=== PATIENT | female | born 1955 | race Native Hawaiian/Other Pacific Islander ===

== ENCOUNTER 2018-07-14 10:41 | Emergency (ER) | payer OTHER, SELFPAY ==
[2018-07-14 11:09] VITALS: BP 141/52
--- NOTE | 2018-07-14 11:10 | Emergency Department Report ---
Chief Complaint: Recheck/Abnormal Lab/Rx Stated Complaint: SENT BY /HYPERKALEMIA Time Seen by Provider: 07/14/18 11:08 - HPI History of Present Illness: Pt presents for hyperkalemia sent by her PCP she has paperwork which shows a K o 6.3 she states she was placed on medication but not sure what it is today had a recheck of K which was 6.4 sent to ED for further evaluation MSE screening note: Focused history and physical exam performed. Due to findings the following was ordered: labs, EKG ED Disposition for MSE Condition: Stable
[2018-07-14] MEDS ORDERED: KIONEX PO ONE ×2 (12:32→12:33)
--- NOTE | 2018-07-14 12:38 | Emergency Department Report ---
ED General Adult HPI - General Chief complaint: Recheck/Abnormal Lab/Rx Stated complaint: SENT BY DR/HYPERKALEMIA Time Seen by Provider: 07/14/18 11:08 Source: patient Mode of arrival: Ambulatory Limitations: No Limitations - History of Present Illness Initial comments: Patient is a 62-year-old female who is presenting with asymptomatic hyperkalemia. The patient's physician placed her on Kayexalate secondary to this hyperkalemia at the level 6.3. Patient states she took 3 days' worth of Kayexalate and her potassium was still high so her physician sent her to the emergency department. Patient has no nausea vomiting diarrhea fevers chills cough cold or congestion at this time. Severity scale (0 -10): 0 - Related Data Home Medications Medication Instructions Recorded Confirmed Last Taken Dramamine (Nf) 50 mg PO Q6H PRN 02/26/15 02/26/15 02/26/15 0800 Ibuprofen [Advil 100 MG tab] 200 mg PO Q6H PRN 02/26/15 02/26/15 02/26/15 Lisinopril [Zestril TAB] 10 mg PO QDAY 02/26/15 02/26/15 02/26/15 metFORMIN [Glucophage] 1,000 mg PO BID 02/26/15 02/26/15 02/26/15 Allergies Allergy/AdvReac Type Severity Reaction Status Date / Time codeine Allergy Intermediate Vomiting Verified 02/26/15 22:06 ED Review of Systems ROS: Stated complaint: SENT BY DR/HYPERKALEMIA Other details as noted in HPI Comment: All other systems reviewed and negative ED Past Medical Hx - Past Medical History Hx Hypertension: Yes Hx Diabetes: Yes - Social History Smoking Status: Never Smoker Substance Use Type: None - Medications Home Medications: Home Medications Medication Instructions Recorded Confirmed Last Taken Type Dramamine (Nf) 50 mg PO Q6H PRN 02/26/15 02/26/15 02/26/15 History 0800 Ibuprofen [Advil 100 MG tab] 200 mg PO Q6H PRN 02/26/15 02/26/15 02/26/15 Histo ry Lisinopril [Zestril TAB] 10 mg PO QDAY 02/26/15 02/26/15 02/26/15 History metFORMIN [Glucophage] 1,000 mg PO BID 02/26/15 02/26/15 02/26/15 History ED Physical Exam - General Limitations: No Limitations General appearance: alert, in no apparent distress - Head Head exam: Present: atraumatic, normocephalic - Eye Eye exam: Present: normal appearance - ENT ENT exam: Present: mucous membranes moist - Neck Neck exam: Present: normal inspection - Respiratory Respiratory exam: Present: normal lung sounds bilaterally. Absent: respiratory distress, wheezes, rales, rhonchi, stridor - Cardiovascular Cardiovascular Exam: Present: regular rate, normal rhythm. Absent: systolic murmur, diastolic murmur, rubs, gallop - GI/Abdominal GI/Abdominal exam: Present: soft, normal bowel sounds. Absent: distended, tenderness, guarding, rebound - Extremities Exam Extremities exam: Present: normal inspection - Back Exam Back exam: Present: normal inspection - Neurological Exam Neurological exam: Present: alert, oriented X3 - Psychiatric Psychiatric exam: Present: normal affect, normal mood - Skin Skin exam: Present: warm, dry, intact, normal color. Absent: rash ED Course Vital Signs 07/14/18 11:06 Temperature 97.8 F Pulse Rate 97 H Respiratory 18 Rate Blood Pressure 141/52 O2 Sat by Pulse 98 Oximetry ED Medical Decision Making - Lab Data Result diagrams: 07/14/18 11:52 - EKG Data -: EKG Interpreted by Me EKG shows normal: sinus rhythm, axis, intervals, QRS complexes, ST-T waves Rate: normal - EKG Data Interpretation: normal EKG - Medical Decision Making Patient's potassium 6.2 here in emergency department. I asked the patient specifically how much of her Kayexalate she was taking it she stated a teaspoon. Patient was supposed to take 15 g which is the equivalent of 60 mL's. Patient is only been taking 5 ML's once a day which equates to 3 g of Kayexalate. At this rate the patient has been inadequately dosed. Patient was given education on how much 60ml is. She was given a syringe to be able to give her medications at the proper dose. Patient given her first dose of 60 mL's of Kayexalate here in emergency department the patient be discharged home with follow-up with her primary care physician for retesting. Patient has no symptoms at this time and no EKG changes he can be safely discharged. Critical care attestation.: If time is entered above; I have spent that time in minutes in the direct care of this critically ill patient, excluding procedure time. ED Disposition Clinical Impression: Hyperkalemia Disposition: DC-01 TO HOME OR SELFCARE Is pt being admited?: No Does the pt Need Aspirin: No Condition: Stable Additional Instructions: Please take 60 mL of your Kayexalate daily for the next 3 days and then follow- up with your primary care physician for retesting of your potassium Time of Disposition: 12:38
== END 2018-07-14 12:43 | disposition home or self-care (01) ==
LOC: ED 10:41
DX: E87.5 Hyperkalemia (principal); I10 Essential (primary) hypertension; E11.9 Type 2 diabetes mellitus without complications; Z88.5 Allergy status to narcotic agent
CPT/HCPCS: 36415; 84132; 93005; 93010; 99283

== ENCOUNTER 2018-10-15 12:48 | Emergency (ER) | payer OTHER, SELFPAY ==
--- NOTE | 2018-10-15 14:13 | Emergency Department Report ---
Blank Doc - Documentation Documentation: reports abdominal pain x3 days and saw pcp PCP today and was sent to [facility] to be evaluated. Denies Nausea/vomiting/diarrhea. Denies kidney stones . reports pain lt abdomen and left back VSS. Labs ordered
[2018-10-15 14:32] LABS: Basophils % (Auto) 0.5 % (0.0-1.8); Eosinophils % (Auto) 0.7 % (0.0-4.3); Hematocrit 35.6 % (30.3-42.9); Hemoglobin 11.9 gm/dl (10.1-14.3); Lymphocytes # (Auto) 1.2 K/mm3 (1.2-5.4); Mean Corpuscular HGB Conc 33 % (30-34); Mean Corpuscular Volume 95 fl (79-97); Monocytes # (Auto) 0.4 K/mm3 (0.0-0.8); Monocytes % (Auto) 6.8 % (0.0-7.3); Platelet Count 315 K/mm3 (140-440); Red Blood Count 3.73 M/mm3 (3.65-5.03); Red Cell Distribution Width 12.7 % (13.2-15.2)
[2018-10-15 15:14] LABS: Albumin 4.3 g/dL (3.9-5); Calcium 9.6 mg/dL (8.4-10.2)
[2018-10-15 15:23] LABS: Bilirubin,Urine NEG (Negative); Blood,Urine NEG (Negative); Color,Urine Yellow (Yellow); Mucus,Urine FEW /HPF; Protein,Urine <15 mg/dL mg/dL (Negative); Urobilinogen,Urine < 2.0 mg/dL (<2.0)
--- NOTE | 2018-10-15 16:35 | Emergency Department Report ---
ED Abdominal Pain HPI - General Chief Complaint: Abdominal Pain Stated Complaint: LT SIDE PAIN Time Seen by Provider: 10/15/18 14:08 Source: patient Mode of arrival: Ambulatory Limitations: No Limitations - History of Present Illness Initial Comments: She was a pleasant 62-year-old who is sent to us by the primary care doctor for evaluation of her left lower quadrant abdominal pain. Patient is nontoxic. She is ambulatory. Vital signs are normal. She has no fever. Patient denies any nausea vomiting or bloody stools. She denies constipation. She reports that her doctors concerned about her having diverticulitis. Patient has a past medical history of diabetes and hypertension. MD Complaint: abdominal pain - Related Data Home Medications Medication Instructions Recorded Confirmed Last Taken Lisinopril [Zestril TAB] 10 mg PO QDAY 02/26/15 02/26/15 02/26/15 metFORMIN [Glucophage] 1,000 mg PO BID 02/26/15 02/26/15 02/26/15 Previous Rx's Medication Instructions Recorded Last Taken Type Ciprofloxacin HCl [Ciprofloxacin 500 mg PO Q12HR 20 Days tab 10/15/18 Unknown Rx TAB] metroNIDAZOLE [Flagyl CAP] 375 mg PO Q8H #30 capsule 10/15/18 Unknown Rx Allergies Allergy/AdvReac Type Severity Reaction Status Date / Time codeine Allergy Intermediate Vomiting Verified 10/15/18 12:52 ED Review of Systems ROS: Stated complaint: LT SIDE PAIN Other details as noted in HPI Comment: All other systems reviewed and negative ED Past Medical Hx - Past Medical History Hx Hypertension: Yes Hx Diabetes: Yes - Surgical History Past Surgical History?: No - Family History Family history: no significant - Social History Smoking Status: Never Smoker Substance Use Type: None - Medications Home Medications: Home Medications Medication Instructions Recorded Confirmed Last Taken Type Lisinopril [Zestril TAB] 10 mg PO QDAY 02/26/15 02/26/15 02/26/15 History metFORMIN [Glucophage] 1,000 mg PO BID 02/26/15 02/26/15 02/26/15 History Ciprofloxacin HCl [Ciprofloxacin 500 mg PO Q12HR 20 Days tab 10/15/18 Unknown Rx TAB] metroNIDAZOLE [Flagyl CAP] 375 mg PO Q8H #30 capsule 10/15/18 Unknown Rx ED Physical Exam - General Limitations: No Limitations General appearance: alert - Head Head exam: Present: normocephalic - Eye Eye exam: Present: PERRL - Respiratory Respiratory exam: Present: normal lung sounds bilaterally - Cardiovascular Cardiovascular Exam: Present: regular rate - GI/Abdominal GI/Abdominal exam: Present: soft, normal bowel sounds. Absent: distended, tenderness, guarding, rebound, rigid, diminished bowel sounds, hyperactive bowel sounds, hypoactive bowel sounds, organomegaly, mass, bruit, pulsatile mass, hernia - Extremities Exam Extremities exam: Present: normal inspection - Other Other exam information: WDWN patient in NAD VS per RN flow sheet Alert and oriented to person, place and time. S1-S2. No S3 or S4. No systolic or diastolic murmur. No JVD. No pitting edema. Lungs clear to auscultation bilaterally anteriorly and posteriorly. Abdomen soft nontender bowel soundsx4 Moves all extremities well. Mood and affect appropriate. ED Course Vital Signs 10/15/18 10/15/18 14:08 18:06 Temperature 98.2 F Pulse Rate 90 73 Respiratory 18 16 Rate Blood Pressure 131/50 Blood Pressure 121/60 [Left] O2 Sat by Pulse 97 100 Oximetry ED Medical Decision Making - Lab Data Result diagrams: 10/15/18 14:18 10/15/18 14:18 - Radiology Data Radiology results: report reviewed, image reviewed - Medical Decision Making Labs 10/15/18 10/15/18 10/15/18 14:18 14:18 14:49 WBC 5.7 RBC 3.73 Hgb 11.9 Hct 35.6 MCV 95 MCH 32 MCHC 33 RDW 12.7 L Plt Count 315 Lymph % (Auto) 21.0 [place] % (Auto) 6.8 Eos % (Auto) 0.7 Baso % (Auto) 0.5 Lymph # 1.2 [place] # 0.4 Eos # 0.0 Baso # 0.0 Seg Neutrophils % 71.0 H Seg Neutrophils # 4.0 Sodium 144 Potassium 5.0 Chloride 108.8 H Carbon Dioxide 22 Anion Gap 18 BUN 40 H Creatinine 1.2 Estimated GFR 45 BUN/Creatinine Ratio 33 Glucose 187 H Calcium 9.6 Total Bilirubin 0.30 AST 20 ALT 24 Alkaline Phosphatase 80 Total Protein 8.2 Albumin 4.3 Albumin/Globulin Ratio 1.1 Lipase 59 Urine Color Yellow Urine Turbidity Clear Urine pH 5.0 Ur Specific [place] 1.021 Urine Protein <15 mg/dl Urine Glucose (UA) Neg Urine Ketones Neg Urine Blood Neg Urine Nitrite Neg Urine Bilirubin Neg Urine Urobilinogen < 2.0 Ur Leukocyte Esterase Mod Urine WBC (Auto) 11.0 H Urine RBC (Auto) 2.0 U Epithel Cells (Auto) 2.0 Urine Mucus Few Vital Signs 10/15/18 14:08 Temperature 98.2 F Pulse Rate 90 Respiratory 18 Rate Blood Pressure 131/50 O2 Sat by Pulse [address] NOTED VSS NO FEVER NAD TAKING PO NO ABD PAIN HERE IN ER NO N/V/D RELIABLE FOR FOLLOW UP DC HOME WITH DC PLAN OF CARE AND GI FOLLOW UP Critical care attestation.: If time is entered above; I have spent that time in minutes in the direct care of this critically ill patient, excluding procedure time. ED Disposition Clinical Impression: Diverticulitis Disposition: DC-01 TO HOME OR SELFCARE Is pt being admited?: No Does the pt Need Aspirin: No Condition: Stable Instructions: Diverticulitis (ED) Additional Instructions: DIET TOLERATED MEDS ORDERED TODAY IN ER FOLLOW INSTRUCTIONS ON THE BOTTLE FOLLOW UP PCP WITHIN 48 HOURS TO ENSURE YOU ARE GETTING BETTER ACTIVITY TOLERATED TYLENOL FOR PAIN OR FEVER DO NOT TAKE MOTRIN- THIS CAN CAUSE BLOOD TO BE IN YOUR STOOL RETURN TO THE ER FOR WORSENING SYMPTOMS NOT RELIEVED BY YOUR MEDICATIONS. YOU NEED TO SEE A GI MD NEXT WEEK YOU MAY NEED A COLONOSCOPY REFERRAL BELOW Prescriptions: Ciprofloxacin HCl [Ciprofloxacin TAB] 500 mg PO Q12HR 20 Days tab metroNIDAZOLE [Flagyl CAP] 375 mg PO Q8H #30 capsule Referrals: AMELIA STODDARD MD [Staff Physician] - 3-5 Days TYLOR CANALES MD [Staff Physician] - 3-5 Days DIAMOND CORTEZ MD [Staff Physician] - 3-5 Days Time of Disposition: 17:39
--- NOTE | 2018-10-15 17:28 | Cat Scan Report ---
CT ABDOMEN AND PELVIS WITHOUT CONTRAST HISTORY: Left-sided abdominal pain COMPARISON: CT abdomen and pelvis on 02/27/2015 TECHNIQUE: Routine abdominal and pelvic CT exam performed following intravenous contrast administrat ion.. All CT scans at this location are performed using CT dose reduction for ALARA by means of autom ated exposure control. FINDINGS: CT ABDOMEN: Lung Bases: No significant abnormality. Liver: No significant abnormality. Biliary: No significant abnormality. Spleen: No significant abnormality. Unenlarged. Pancreas: No significant abnormality. Adrenals: No significant abnormality. Kidneys: No significant abnormality. Lymphatics: No lymphadenopathy. Vasculature: No significant abnormality. Bowel/Peritoneum: Mild acute diverticulitis of the proximal sigmoid colon without abscess or signific ant perforation. Normal appendix. CT PELVIC: : No significant abnormality. Lymphatics: No lymphadenopathy. Osseous Structures: No aggressive appearing osseous lesions. Mild to moderate diffuse spondylosis in the lower thoracic and lumbar spine. Additional Findings: None IMPRESSION: 1. Acute diverticulitis of the proximal sigmoid colon without evidence of abscess or significant perf oration. Signer Name: Akira Brand MD Signed: 10/15/2018 5:24 PM Workstation Name: [id number]
[2018-10-15 18:07] VITALS: BP 121/60
== END 2018-10-15 18:06 | disposition home or self-care (01) ==
LOC: ED 12:48
DX: K57.92 Diverticulitis of intestine, part unspecified, without perforation or abscess without bleeding (principal); I10 Essential (primary) hypertension; E11.9 Type 2 diabetes mellitus without complications
CPT/HCPCS: 36415; 74177; 80053; 81001; 83690; 85025; 87086; 99284; Q9967